=== PATIENT | female | born 1995 ===

== ENCOUNTER 2024-06-16 17:54 | Emergency (ER) | payer OTHER ==
[~2024-06-16] VITALS: Ht 157.5 cm; Wt 62.7 kg
[2024-06-16 17:57] VITALS: TEMP 98.9
[2024-06-16] MEDS ORDERED: fentaNYL 50 MCG/ML 2 ML VIAL IV ONE (18:15)
[2024-06-16] MEDS ORDERED: Famotidine 20 MG TAB PO ONE (18:15)
[2024-06-16 18:21] LABS: BASO % 0.5 % (0.0-2.0); EOS % 0.4 % (0.0-4.0); GRAN % 70.3 % (42.2-75.2); HEMATOCRIT 39.6 % (37.0-47.0); HEMOGLOBIN 13.3 g/dl (12.5-16.0); LYMPH # 1.8 K/mm3 (1.2-3.4); LYMPH % 21.3 % (20.0-51.0); MEAN CELL VOLUME 83 fl (80.0-100.0); MEAN CORPUSCULAR HEMOGLOBIN 28 pg (27-31); MEAN CORPUSCULAR HGB CONC 34 g/dl (33.0-37.0); MEAN PLATELET VOLUME 10.5 fl (7.4-10.4); MONO # 0.6 K/mm3 (0.1-0.6); MONO % 7.1 % (1.7-9.3); PLATELET COUNT 221 K/mm3 (130-400); RED BLOOD COUNT 4.75 M/mm3 (4.10-5.30); REDCELL DISTRIBUTION WIDTH-CV 12.5 % (11.5-14.5)
[2024-06-16 18:41] LABS: ALANINE AMINOTRANSFERASE 14 U/L (0-55); ALBUMIN 4.1 g/dL (3.5-5.0); ALKALINE PHOSPHATASE 58 U/L (40-150); ANION GAP 10 mmol/L (7-16); AST,SGOT 13 U/L (5-34); BILIRUBIN,TOTAL 0.3 mg/dL (0.2-1.2); BLOOD UREA NITROGEN 11 mg/dL (7-19); CALCIUM 9.6 mg/dL (8.4-10.2); CHLORIDE 107 mEq/L (98-107); CREATININE, serum 0.83 mg/dL (0.57-1.11); GLUCOSE 103 mg/dL (70-99); POTASSIUM 4.1 mEq/L (3.5-4.5); SODIUM 140 mEq/L (136-145); TOTAL PROTEIN 7.7 g/dl (6.2-8.1)
[2024-06-16 19:00] LABS: TROPONIN-I < 0.010 ng/mL (0.00-0.033)
[2024-06-16 21:08] VITALS: BP 109/62; PULSE 74
== END 2024-06-16 21:02 | disposition home or self-care (01) ==
LOC: COL.ER 17:54
PROVIDERS: Emergency Medicine
DX: R07.89 Other chest pain (principal)
CPT/HCPCS: J3010